=== PATIENT | male | born 1965 | race Caucasian/White ===

== ENCOUNTER 2020-03-03 11:28 | Emergency (ER) | payer MEDICAID, SELFPAY ==
[2020-03-03 11:32] VITALS: BP 148/85; PULSE 98; RESP 15; TEMP 36.2; O2SAT 98; BMI 25.7
--- NOTE | 2020-03-03 12:30 | RAD_ITS ---
STUDY: X-RAY - RIGHT RADIUS AND ULNA REASON FOR EXAM: Male, 55 years old. Splinter earlier today TECHNIQUE: 2 view(s) of the forearm. COMPARISON: None. FINDINGS: There is no demonstrated soft tissue swelling. No radiopaque foreign body is seen. Normal visualized radius. Normal visualized ulna. RAD/Forearm 2 Views IMPRESSION: No radiopaque foreign body is seen. Electronically Signed: Duc Elias MD at 12:55 EST , Service support ,
--- NOTE | 2020-03-03 12:56 | ED.VIS.GEN ---
History of Present Illness Chief Complaint: Foreign Body Informant: Patient Narrative: 55-year-old male presenting with splinter in the right forearm. He states that it was a few inches long. He was able to remove a portion of this but the rest is embedded in his forearm. Last tetanus was in January. [id number]. Patient has no active bleeding. Past Medical History - Allergies and Home Meds Allergies/Adverse Reactions: Allergies No Known Allergies Allergy (Verified 03/03/20 11:30) Primary Care Physician: Tushar Espitia MD [Primary Care Provider] - Prior records reviewed: Yes Past Medical History: - - Denies significant medical history Surgical History: noncontributory Lives: Alone Smoking Status: Current every day smoker Alcohol: None Drugs: None Review of Systems General: Denies: Chills, Fever, Sweats Eyes: Denies: Visual changes - bilaterally, Diplopia ENT: Denies: Rhinorrhea, Sore throat Cardiovascular: Denies: Chest pain, Palpitations Respiratory: Denies: Dyspnea, Cough, Dyspnea on exertion Gastrointestinal: Denies: Abdominal pain, Nausea, Vomiting, Diarrhea, Melena, Hematochezia Genitourinary: Denies: Dysuria, Hematuria, Frequency Musculoskeletal: Denies: Back pain, Extremity Pain Skin: Reports: - - Splinter in right forearm.. Denies: Rash, Abscess Neurological: Denies: Headache, Weakness, Parasthesia, Numbness Psych: Denies: Depression, Anxiety Physical Exam Vital Signs/Narrative: Vital Signs Temp Pulse Resp BP Pulse Ox 03/03/20 11:32 97.2 F L 98 15 148/85 H 98 Inital Vital Signs reviewed: Yes General: Well nourished Head: Normocephalic, Atraumatic Eyes: Perrl, EOMI ENT: Moist mucous membranes. Negative for: Nasal congestion Cardiovascular: Regular rate, Regular rhythm Respiratory: No distress, CTA bilaterally Extremities: Negative for: No edema, Calf Tenderness Skin: Normal color, No rash, - - On dorsal aspect of forearm there is a superficial punctate area with palpable splinter proximal to it approximately 3 cm. No active bleeding. Neurological: Alert, Oriented x3 Psychological: Normal affect, Normal Mood Diagnostic/Tx/Re-eval - Medical Decision Making Patient presents with splinter in the right forearm. See procedure note. This was removed without sequela. Patient tolerated procedure well. He will be started on antibiotics outpatient. He is counseled on wound care. He will follow-up with his primary care provider otherwise he will come back to the ED if he has any worsening symptoms. Patient stable for discharge. Impression: 1. Foreign body skin?removed Procedures Procedure(s): Patient's right forearm was cleansed with Shur-Clens and left to dry. Wound was anesthetized with 3 cc of lidocaine without epinephrine. Good anesthesia achieved. Small incision made at the opening of the wound in order to visualize the splinter within. Multiple small splinters were removed. The largest of which was approximately 3 cm. Patient tolerated procedure well. Wound was cleaned and dressed. ED Disposition - Plan for ED Patient: Disposition: Home or Assisted Living Instructions: ED Foreign Body, Soft Tissue (Removed) Prescriptions: Cephalexin [Keflex] 500 mg PO Q6 #40 cap Prescription Printed Referrals: Tushar Espitia MD [Primary Care Provider] -
[2020-03-03] MEDS: Cephalexin 250 MG Capsule 500 MG PO (13:19)
--- NOTE | 2020-03-03 13:19 | ED.RN ---
lido with epi on backorder. regular lido used
== END 2020-03-03 13:22 | disposition home or self-care (01) ==
PROVIDERS: Emergency Provider Student in an Organized Health Care Education/Training Program; PCP Internal Medicine
DX: S50.851A Superficial foreign body of right forearm, initial encounter (principal); W45.8XXA Other foreign body or object entering through skin, initial encounter; Y93.9 Activity, unspecified; Y92.89 Other specified places as the place of occurrence of the external cause; Y99.9 Unspecified external cause status; F17.200 Nicotine dependence, unspecified, uncomplicated
CPT/HCPCS: 10120; 73090; 99283